=== PATIENT | male | born 1960 | race Caucasian/White ===

== ENCOUNTER 2019-10-29 15:50 | Inpatient (IN) | payer MEDICARE ==
[~2019-10-29] VITALS: Ht 185.4 cm; Wt 94.8 kg
[2019-10-29 16:06] LABS: ABSOLUTE EOSINOPHILS 0.1 thou/uL (0.0-0.7); ABSOLUTE LYMPHOCYTES 1.2 thou/uL (0.8-5.3); ABSOLUTE MONOCYTES 0.3 thou/uL (0.0-1.2); ABSOLUTE NEUTROPHILS 5.3 thou/uL (1.6-8.1); BASOPHILS 0.5 %; HEMATOCRIT 47.1 % (42.0-52.0); HEMOGLOBIN 16.5 gm/dL (14.0-18.0); LYMPHOCYTES 17.1 %; MCH 39.4 pg (26.0-34.0); MCHC 35.1 g/dL (28.0-37.0); MCV 112.2 fL (80.0-100.0); MPV 8.2 fl. (7.2-11.1); NUCLEATED RBCS 0 /100WBC; PLATELET COUNT* 225 thou/uL (150-400); POLYS 77.4 %; RDW-CV 15.4 % (10.5-14.5); WBC 6.8 thou/uL (4.0-11.0)
[2019-10-29 16:09] VITALS: BP 158/103
[2019-10-29 16:15] LABS: CALCIUM 8.2 mg/dL (8.5-10.1); CREATININE 0.9 mg/dL (0.6-1.3); POTASSIUM 3.3 mmol/L (3.5-5.1)
[2019-10-29 16:16] LABS: APTT 26.8 Seconds (25.0-31.3); PROTIME 10.5 Seconds (9.20-11.50)
[2019-10-29] MEDS ORDERED: ASA81BEC PO (16:16)
[2019-10-29 16:19] LABS: ALBUMIN 3.4 g/dL (3.4-5.0); TOTAL BILIRUBIN 0.5 mg/dL (<0.1-1.0); TOTAL PROTEIN 6.4 g/dL (6.4-8.2)
--- NOTE | 2019-10-29 16:53 | NUR ---
CODE STROKE CANCELLED, DX CHANGED TO NSTEMI; PT CURRENTLY WITH CP 12/25; WILL CONTINUE TO MONITOR
[2019-10-29 16:57] LABS: ANISOCYTOSIS 2+; POIKILOCYTOSIS 1+; POLYCHROMASIA Occasional
[2019-10-29 21:28] VITALS: BP 125/77
[2019-10-29 22:00] VITALS: BP 123/79
[2019-10-30] VITALS (14 sets, daily range): BP systolic 102–133; BP diastolic 64–88
[2019-10-30 01:04] LABS: HEMATOCRIT 42.1 % (42.0-52.0); HEMOGLOBIN 14.9 gm/dL (14.0-18.0); MCH 39.4 pg (26.0-34.0); MCHC 35.3 g/dL (28.0-37.0); MCV 111.8 fL (80.0-100.0); MPV 8.5 fl. (7.2-11.1); RBC 3.77 mil/uL (4.50-6.00); RDW-CV 15.6 % (10.5-14.5); WBC 7.6 thou/uL (4.0-11.0)
--- NOTE | 2019-10-30 05:08 | NUR ---
PT ADMITTED TO FLOOR AT 2140 WITH FAMILY AT BEDSIDE. ASSESSMENTS COMPLETED AT BEDSIDE, ACCOUNT LIAISON HOSPICE IN PLACE AND MEDICATIONS ADMINISTERED PER MAR. PT HAS NO C/O PAIN OR DISCOMFORT AND REQUESTED A BOX LUNCH PROIR TO NPO STATUS AT 0000. CURRENTLY ASLEEP IN BED WITH BED ALARM ON AND CALL LIGHT WITHIN REACH.
[2019-10-30 11:56] LABS: INR 1.1; PROTIME 11.1 Seconds (9.20-11.50)
[2019-10-30 12:02] LABS: ANION GAP 7 mmol/L (7-16); BUN 13 mg/dL (7-18); CALCIUM 7.8 mg/dL (8.5-10.1); CHLORIDE 107 mmol/L (98-107); CHOLESTEROL 170 mg/dL (<200); CO2 27 mmol/L (21-32); CREATININE 0.8 mg/dL (0.6-1.3); GLUCOSE 103 mg/dL (70-99); HDL CHOLESTEROL 38 mg/dL (>40); LDL CHOLESTEROL 106 mg/dL (<100); POTASSIUM 3.8 mmol/L (3.5-5.1); SODIUM 141 mmol/L (136-145); TC:HDL 4.5 Ratio (Not establshd); TRIGLYCERIDE 133 mg/dL (<150); VLDL 27 mg/dL (<40)
[2019-10-30 12:04] LABS: SERUM ASSESSMENT Clear
--- NOTE | 2019-10-30 13:18 | CARD ---
[facility] [address] [place] [address] CARDIAC CATH REPORT Name: SANTOS BASSETT Room: [address] IN .R.#: [id number] Admission: 10/29/19 Attend Phys: Elver Kim, Discharge: Date of : 58 Report #: [id number] THIS REPORT FOR: //name// cc: Rehan Kern Bradley L. DO ~ THIS REPORT FOR: //name// APPROVED REPORT Study performed: 10/30/2019 11:18:[address] Checo Vega Procedures Performed Left heart catheterization left ventriculography selective coronary artery and percutaneous coronary intervention to the right coronary artery just beyond the acute margin Indication Non-STEMI Risk Factors Hypercholesterolemia, Hypertension Admission/Lab Medications/Medications given during procedure Angiomax bolus and infusion Procedure Narrative The patient was brought electively to the Cardiac Catheterization Laboratory and was prepped and draped in a sterile manner. The right femoral was infiltrated with 2% Lidocaine subcutaneous anesthesia. A 6 Pashto sheath was inserted into the right femoral artery. Coronary angiography was performed using coronary diagnostic catheters. The right coronary system was accessed and visualized with a Diagnostic catheter. The left coronary system was accessed and visualized with a Diagnostic catheter. The left ventricle was accessed and visualized with a Diagnostic catheter. Left ventricular/Aortic Valve gradient assessed via catheter pullback. Left ventriculogram was performed in [place] projection. Pre-demployment femoral angiogram was performed . Closure device was deployed with a 6 Fr Angioseal. There was no hematoma. Coronary Angiography The patient's coronary anatomy is right dominant. [facility] [address] [place] [address] CARDIAC CATH REPORT Name: SANTOS BASSETT Room: [address] IN [facility]#: [id number] Admission: 10/29/19 Attend Phys: Elver Kim, Discharge: Date of : 58 Report #: [id number] Diagnostic Cath Left Main 0% narrowing LAD 60-70% mid vessel stenosis Circumflex 0% narrowing of the small nondominant vessel Right Coronary Large dominant vessel with 90% occlusion just beyond the acute margin with local intraluminal thrombus Left Ventriculography The left ventricle is normal in size with contractility. The left ventricular ejection fraction is estimated to be 50-55%. Left ventricular wall motion abnormalities are present. There is no mitral insufficiency. There is hypokinesis of the basilar two thirds of the inferior wall Hemodynamics The left ventricular pressure is 130/70 mmHg with a mean of 82 mmHg. The left ventricular end diastolic pressure is 16 mmHg. There was no gradient across the aortic valve upon pullback. PCI Technique Lesion Anticoagulation was achieved with Angiomax. Percutaneous coronary intervention was performed on the distal right coronary artery. The lesion stenosis prior to intervention was 90% with BRENDAN 3 flow. BALLOON DILATION A Balloon catheter 2.5 x 12 mm trek was inserted and inflated up to 14atm for 15seconds. STENT DEPLOYMENT A drug-eluting stent 3.25 x 15 mm xience was inserted and inflated up to 15atm for 10seconds. Final angiography reveals 10 % stenosis with BRENDAN 3 flow. Conclusion #1 coronary artery disease characterized by the following: A 60-70% mid LAD stenosis B 90% stenosis of the large dominant right coronary artery just beyond the acute margin with local intraluminal thrombus #2 mild impairment in global LV function, [place] [address] CARDIAC CATH REPORT Name: SANTOS BASSETT Room: [address] IN [facility].#: [id number] Admission: 10/29/19 Attend Phys: Elver Kim, Discharge: Date of : 58 Report #: [id number] of 50-55% with hypokinesis of the basilar two thirds of the inferior wall #3 mild elevation of left ventricular end-diastolic pressure at rest #4 successful percutaneous coronary intervention with deployment of drug-eluting stent at site of 90% right coronary stenosis just beyond the acute margin with 10% residual narrowing BRENDAN-3 flow to the distal vessel and no residual thrombus Recommendations Cardiac Risk Reduction Program Aggressive Medical Therapy Medications Administered Aspirin (any) Prasugrel Diagnostic Cath Approved by: Daniel Kessler MD Date/Time: 10/30/2019 13:17:06 <ELECTRONICALLY SIGNED> By: Sergio Vega MD, [facility] 10/30/19 1317 16 Sergio Vega MD, [facility] /INF
--- NOTE | 2019-10-30 19:09 | NUR ---
PT VSS THIS SHIFT. PT WENT DOWN AND HAD A CATH THIS SHIFT, WITH RT GROIN SITE. SITE IS CDI WITH NO S/SX OF BLEEDING. PT OFF PXNS AT THIS TIME WITH NO NOTED CONCERNS. PT HAS IV FLUIDS RUNNING WHICH HE IS TOLERATING, PT IS TOLERATING DIET, O2 PER NC @ 2L, AND HAS RASH TO UPPER LEFT SIDE OF ABD/CHEST THAT WAS NOTED DURING THE CATH PROCEDURE, PT HAS NO C/O PAIN OR ITCHING AT THIS TIME AND MEDICATIONS WERE PROVIDED DURING CATH PROCEDURE. WILL CONTINUE TO MONITOR AND ASSESS
[2019-10-30 19:38] LABS: AMP/METHAMP Negative (Negative); BARBITURATES Negative (Negative); BENZODIAZEPINES POSITIVE (Negative); COCAINE Negative (Negative); METHADONE Negative (Negative); OPIATES Negative (Negative); PCP Negative (Negative); THC Negative (Negative)
[2019-10-31] VITALS (7 sets, daily range): BP systolic 99–112; BP diastolic 55–79
--- NOTE | 2019-10-31 02:57 | NUR ---
PT ALERT ORIENTED. UP TO BR. FINISHED VITAMIN BAG AT 0250. DENIES PAIN. O2 DC PER PT. RA O2 SAT 90% WCTM
--- NOTE | 2019-10-31 12:27 | NUR ---
ASSUMED PT CARE REPORT RECEIVED FROM NURSE PT IS AOX4 ON RA. O2 SATURATION IS 94%, IV PATENT. R GROIN SITE CLEAN, DRY, AND INTACT. IV MULTIVITAMINS BAG IS NOT AVAILABLE AT TIME OF MEDICATION ADMINISTRATION. PHARMACY NOTIFIED. WILL CHECK FOR AVAILABILITY AGAIN. PT IS ANXIOUS TO GO HOME. AWAITNG FOR HOSPITALIST ARRIVAL. PT AMBULATES INDEPENDENTLY IN HALLWAY. NO FURTHER COMPLAINT. CALL LIGHT AT REACH. WILL CONTINUE TO MONITOR .
--- NOTE | 2019-10-31 12:48 | CON ---
[address] [address] CONSULTATION Name: SANTOS BASSETT Room: [address] IN .R.#: [id number] Admission: 10/29/19 Attend Phys: Elver Kim, Discharge: Date of : 58 Report #: [id number] THIS REPORT FOR: //name// cc: Rehan Kern Bradley L. DO THIS REPORT FOR: //name// CC: Rehan Bojorquez CARDIOLOGY CONSULTATION INDICATION: Non-ST elevation myocardial infarction. HISTORY OF PRESENT ILLNESS: The patient is a very pleasant 59-year-old gentleman who was admitted to the hospital yesterday with persistent left of sternum chest pressure and tightness radiating to the left arm. He had associated diaphoresis and nausea. The patient's cardiac enzymes were slightly elevated. EKG showed ST segment depression suggesting ischemia. The patient was given nitroglycerin, aspirin and heparin and his symptoms abated. The patient is presently pain free. He reports having some mild heart attacks approximately 20-25 years ago. At that time, angiography was performed, but no intervention undertaken. He has been having progressive symptoms for the past week. He is without other cardiac complaint. Cardiac risk factors include tobacco use and family history of coronary artery disease. Lipid status is unknown. He was hypertensive on admission, but denies a history of chronic hypertension. He is without other cardiac complaint at this time. PAST MEDICAL HISTORY: 1. Heart disease as outlined above. 2. 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 3. Chronic tobacco use. 4. Skin cancer removed from the arm 5 years ago. FAMILY HISTORY: The patient's father had myocardial infarction. SOCIAL HISTORY: The patient smokes a pack of cigarettes daily and has done so for approximately 40 years. Drinks alcohol occasionally. He is . CURRENT MEDICATIONS: Aspirin 81 mg daily, ibuprofen p.r.n. ALLERGIES: None. REVIEW OF SYSTEMS: A 14-point review of systems is positive for a nonproductive cough, chest discomfort as outlined above, orthopnea, skin cancer removed [address] [place] [address] CONSULTATION Name: SANTOS BASSETT Room: [address] IN [facility]#: [id number] Admission: 10/29/19 Attend Phys: Elver Kim, Discharge: Date of : 58 Report #: [id number] years ago, lower back arthritis and upper dentures. Otherwise, 14-point review of systems was unremarkable. PHYSICAL EXAMINATION: VITAL SIGNS: Stable. Blood pressure 127/79, pulse is 70 and regular. GENERAL: This is a pleasant gentleman in no distress. Mood and affect appropriate. HEENT: Extraocular muscles intact. Mucous membranes moist. NECK: Shows no jugular venous distention. There is a right carotid bruit. CARDIAC: Reveals a regular rhythm without gallop or murmur. CHEST: Reveals diminished breath sounds, prolonged expiration. I do not appreciate wheezes or rales. ABDOMEN: Reveals normal bowel sounds. The abdomen is soft, nontender. EXTREMITIES: Shows no edema. Peripheral pulses palpable. SKIN: Warm and dry. LABORATORY DATA: A 12-lead EKG shows sinus rhythm with diffuse T-wave inversion. Labs are reviewed. Sodium 130, potassium 3.3, chloride 105, bicarbonate 26, BUN 10, creatinine 0.9, serum glucose 155. LFTs within normal limits. Troponin peaked 9.79. White blood cell count 7.6, hemoglobin 14.9, platelet count 180,000. Chest x-ray shows no acute cardiopulmonary abnormality. IMPRESSION AND RECOMMENDATIONS: 1. Non-ST elevation myocardial infarction. We will proceed with coronary angiography and possible intervention today. Continue aspirin and heparin at this time. We will make adjustments to medications post-intervention. 2. Probable dyslipidemia. We will check fasting lipid profile. 3. Tobacco use, cessation advised. 4. Borderline hypertension. We will adjust medications as needed to control blood pressure adequately. 5. Carotid bruit. Would recommend outpatient carotid Dopplers for followup. <ELECTRONICALLY SIGNED> By: Daniel Kessler MD, FACC 10/31/19 1248 1038 1207Micgregory Kessler MD, FACC /nt
[2019-10-31] MEDS ORDERED: LIPITOR 40 MG T40 M1 PO (14:50)
[2019-10-31] MEDS ORDERED: CLOPIDOGREL75 MG PO (14:50)
[2019-10-31] MEDS ORDERED: ASPIR 8181 MG PO (14:50)
[2019-10-31] MEDS ORDERED: NITROGLYCERIN0.4 MG SUBLING (14:50)
[2019-10-31] MEDS ORDERED: VITAMIN B-1100 M2 PO (15:15)
[2019-10-31] MEDS ORDERED: FOLIC ACID1 MG PO (15:17)
[2019-10-31] MEDS ORDERED: SUPER THERAVIT1 EACH PO (15:18)
[2019-10-31] MEDS ORDERED: FAMOTIDINE 20 M20 MG PO (15:21)
[2019-10-31] MEDS ORDERED: ENBRACE HR SOF1 EACH PO (15:24)
--- NOTE | 2019-10-31 16:16 | NUR ---
DISCHARGE ORDERED. IV LINE REMOVED. HEART MONITOR RETRIEVED. PT WHEELED OUT OF HOSPITAL AT 1605 ACCOMPANIED BY THIS NURSE AND FAMILY MEMBERS. DC INSTRUCTION GIVEN TO PT UPON DISCHARGE.
--- NOTE | 2019-10-31 16:19 | NUR ---
FOLLOW UP CARDIOLOGY APPNT REQUEST FAXED TO CARDIOLOGY. THIS DAY IS A FRIDAY AND THIS NURSE WAS NOT ABLE TO REACH TO CARDIO TO SET UP FOLLOW UP APPNT BY PHONE. FAX USED. PT NOTIFIED. PT INSTRUCTED TO CALL THEM WITHIN A WEEK IF HE HAD NOT HEARD FROM THEM.
--- NOTE | 2019-11-01 09:06 | EKG ---
[place] [address] ELECTROCARDIOGRAM REPORT Name: SANTOS BASSETT Room: [address] IN [facility]#: [id number] Admission: 10/29/19 Attend Phys: Elver Genao Discharge: 10/31/19 Date of : 58 Date of Service: 10/29/19 1614 Report #: [id number] THIS REPORT FOR: //name// [facility] ED Test Date: 2019-10-29 Test Time: 16:14:13 Pat Name: SANTOS BASSETT Department: Room: [facility] Gender: M Brusher Machine: : 1960 Requested By: Hilario Callahan Order Number: [id number] MD: Ivan Paniagua Measurements Intervals [place] Rate: 82 P: 58 FL: 159 QRS: 129 QRSD: 116 T: -23 QT: 382 QTc: 446 Interpretive Statements Sinus rhythm Left posterior fascicular block Inferior infarct, age indeterminate No previous ECG available for comparison Electronically Signed On 11-01-2019 9:04:55 CDT by Ivan Paniagua [email or web address] <ELECTRONICALLY SIGNED> By: Ivan Paniagua MD, FAC 11/01/19 0904 1614 1614 Ivan Paniagua MD, [facility] /EPI
--- NOTE | 2019-11-01 09:08 | EKG ---
[place] [address] ELECTROCARDIOGRAM REPORT Name: SANTOS BASSETT Room: [address] IN M.R.#: [id number] Admission: 10/29/19 Attend Phys: Elver Genao Discharge: 10/31/19 Date of : 58 Date of Service: 10/29/19 1702 Report #: [id number] THIS REPORT FOR: //name// [facility] ED Test Date: 2019-10-29 Test Time: 17:02:08 Pat Name: SANTOS BASSETT Department: Room: [facility] Gender: M Home Care Specialist: : 1960 Requested By: Hilario Callahan Order Number: [id number] MD: Ivan Paniagua Measurements Intervals [place] Rate: 77 P: 58 [place]: 161 QRS: 116 QRSD: 112 T: -54 QT: 406 QTc: 460 Interpretive Statements Sinus rhythm Left posterior fascicular block Abnormal R-wave progression, late transition Inferior infarct, age indeterminate Electronically Signed On 11-01-2019 9:06:59 CDT by Ivan Paniagua [email or web address] <ELECTRONICALLY SIGNED> By: Ivan Paniagua MD, FAC 11/01/19 0906 170 01 Ivan Paniagua MD, [facility] /EPI
--- NOTE | 2019-11-01 11:49 | EKG ---
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: HELLEN : 1960 Requested By: Daniel Kessler Order Number: [id number] Reading MD: Ivan Paniagua Measurements Intervals [place] Rate: 82 P: 66 PA: 177 QRS: 127 QRSD: 94 T: -27 QT: 377 QTc: 441 Interpretive Statements Sinus rhythm nonspecific st changes Left posterior fascicular block Borderline low voltage, extremity leads Abnormal R-wave progression, late transition Compared to ECG 10/29/2019 17:02:08 no change Electronically Signed On 11-01-2019 11:47:45 CDT by Ivan Paniagua [email or web address] <ELECTRONICALLY SIGNED> By: Ivan Paniagua MD, FAC 11/01/19 1147 0744 0744 Ivan Paniagua MD, FAC /EPI
--- NOTE | 2019-11-03 16:16 | NUR ---
Cardiac Rehab. All education materials of [place]/STENT and Stent card mailed to patient at home address.
== END 2019-10-31 16:16 | disposition home or self-care (01) | DRG 246 ==
LOC: M.ERS 15:50 → M.2W 17:11 → M.TBA-ER 17:11 → M.2W 21:44
PROVIDERS: Family Medicine; Internal Medicine Cardiovascular Disease; ADMIT Family Medicine
PROC: 027034Z Dilation of Coronary Artery, One Artery with Drug-eluting Intraluminal Device, Percutaneous Approach (ICD-10-PCS; principal; 2019-10-30)
PROC: B2151ZZ Fluoroscopy of Left Heart using Low Osmolar Contrast (ICD-10-PCS; principal; 2019-10-30)
PROC: B2111ZZ Fluoroscopy of Multiple Coronary Arteries using Low Osmolar Contrast (ICD-10-PCS; principal; 2019-10-30)
PROC: 4A023N7 Measurement of Cardiac Sampling and Pressure, Left Heart, Percutaneous Approach (ICD-10-PCS; principal; 2019-10-30)
DX: I21.4 Non-ST elevation (NSTEMI) myocardial infarction (principal); I50.33 Acute on chronic diastolic (congestive) heart failure; I69.354 Hemiplegia and hemiparesis following cerebral infarction affecting left non-dominant side; I11.0 Hypertensive heart disease with heart failure; F17.210 Nicotine dependence, cigarettes, uncomplicated; E78.5 Hyperlipidemia, unspecified; I25.10 Atherosclerotic heart disease of native coronary artery without angina pectoris; Z79.82 Long term (current) use of aspirin; Z72.89 Other problems related to lifestyle; Z85.828 Personal history of other malignant neoplasm of skin; Z79.899 Other long term (current) drug therapy; Z82.49 Family history of ischemic heart disease and other diseases of the circulatory system

== ENCOUNTER 2019-12-31 07:38 | Observation (INO) | payer MEDICARE ==
[2019-12-31] VITALS (15 sets, daily range): BP systolic 110–139; BP diastolic 59–81
[~2019-12-31] VITALS: Ht 185.4 cm; Wt 88.5 kg
[~2019-12-31 07:38] MED LIST: ASA81BEC PO; ASPIR 8181 MG PO; BRILINTA90 MG PO; CLOPIDOGREL75 MG PO; ENBRACE HR SOF1 EACH PO; FAMOTIDINE 20 M20 MG PO; FOLIC ACID1 MG PO; LIPITOR 40 MG T40 M1 PO; NITROGLYCERIN0.4 MG SUBLING; SUPER THERAVIT1 EACH PO; VITAMIN B-1100 M2 PO
[2019-12-31 08:43] LABS: HEMATOCRIT 46.3 % (42.0-52.0); HEMOGLOBIN 16.1 gm/dL (14.0-18.0); MCH 34.9 pg (26.0-34.0); MCHC 34.8 g/dL (28.0-37.0); MCV 100.1 fL (80.0-100.0); MPV 8.8 fl. (7.2-11.1); RBC 4.62 mil/uL (4.50-6.00); WBC 6.6 thou/uL (4.0-11.0)
[2019-12-31 08:45] LABS: ANION GAP 8 mmol/L (7-16); BUN 15 mg/dL (7-18); CALCIUM 8.7 mg/dL (8.5-10.1); CHLORIDE 106 mmol/L (98-107); CO2 26 mmol/L (21-32); CREATININE 1.1 mg/dL (0.6-1.3); GLUCOSE 125 mg/dL (70-99); POTASSIUM 3.9 mmol/L (3.5-5.1); SODIUM 140 mmol/L (136-145)
[2019-12-31 08:46] LABS: APTT 27.8 Seconds (25.0-31.3); PROTIME 10.1 Seconds (9.20-11.50)
[2019-12-31 08:49] LABS: ALBUMIN 3.6 g/dL (3.4-5.0); ALKALINE PHOSPHATASE 77 U/L (46-116); CHOLESTEROL 130 mg/dL (<200); HDL CHOLESTEROL 39 mg/dL (>40); LDL CHOLESTEROL 70 mg/dL (<100); SGOT 15 U/L (15-37); SGPT 21 U/L (30-65); TC:HDL 3.3 Ratio (Not establshd); TOTAL BILIRUBIN 0.4 mg/dL (<0.1-1.0); TRIGLYCERIDE 108 mg/dL (<150); VLDL 22 mg/dL (<40)
[2019-12-31 08:53] LABS: SERUM ASSESSMENT Clear
--- NOTE | 2019-12-31 15:15 | EKG ---
[place] [address] ELECTROCARDIOGRAM REPORT Name: SANTOS BASSETT Room: [address] M.R.#: [id number] Admission: 12/31/19 Attend Phys: Adriel Alvarez Discharge: Date of : 58 Date of Service: 12/31/19 0853 Report #: [id number] THIS REPORT FOR: //name// [facility] Test Date: 2019-12-31 Test Time: 08:53:10 Pat Name: SANTOS BASSETT Department: Room: [facility] Gender: M Floor Sander: : 1960 Requested By: Sergio Vega Order Number: [id number] Reading MD: Sergio Vega Measurements Intervals [place] Rate: 65 P: 55 NE: 183 QRS: -18 QRSD: 88 T: 0 QT: 391 QTc: 407 Interpretive Statements Sinus rhythm Borderline left axis deviation Low voltage, extremity leads Abnormal R-wave progression, late transition Compared to ECG 10/31/2019 07:44:30 ST (T wave) deviation no longer present Left posterior fascicular block no longer present Electronically Signed On 12-31-2019 15:13:48 CDT by Sergio Vega [email or web address] <ELECTRONICALLY SIGNED> By: Sergio Vega MD, [facility] 12/31/19 1513 0853 0853 Sergio Vega MD, [facility] /EPI
--- NOTE | 2019-12-31 15:17 | EKG ---
[place] [address] ELECTROCARDIOGRAM REPORT Name: SANTOS BASSETT Room: [address] M.R.#: [id number] Admission: 12/31/19 Attend Phys: Adriel Alvarez Discharge: Date of : 58 Date of Service: 12/31/19 1059 Report #: [id number] THIS REPORT FOR: //name// [facility] Test Date: 2019-12-31 Test Time: 10:59:49 Pat Name: SANTOS BASSETT Department: Room: [facility] Gender: M Slot Key Person: : 1960 Requested By: Sergio Vega Order Number: [id number] Sonja MD: Sergio Vega Measurements Intervals [place] Rate: 59 P: 60 ID: 181 QRS: -63 QRSD: 90 T: -12 QT: 417 QTc: 414 Interpretive Statements Sinus rhythm Inferior infarct, age indeterminate suggested Compared to ECG 10/31/2019 07:44:30 Myocardial infarct finding suggested ST (T wave) deviation no longer present Electronically Signed On 12-31-2019 15:15:46 CDT by Sergio Vega [email or web address] <ELECTRONICALLY SIGNED> By: Sergio Vega MD, [facility] 12/31/19 1515 1059 1059 Sergio Vega MD, [facility] /EPI
--- NOTE | 2019-12-31 15:42 | CARD ---
[address] [address] CARDIAC CATH REPORT Name: SANTOS BASSETT Room: [address] Rudy Fernandez#: [id number] Admission: 12/31/19 Attend Phys: Sergio Vega MD, Discharge: Date of : 58 Report #: [id number] THIS REPORT FOR: //name// cc: Rehan Kern DO Rehan Kern DO ~ APPROVED REPORT Study performed: 12/31/2019 08:46:43 Patient Details Patient Status: Out-Patient Room #: The patient is a 59 year-old male Event Personnel Sergio Vega Kiln Hand, Fany Atkins RN RN, Panchito Bo RTR ScrubEthan Jessie RTR Monitor Procedures Performed Art Access - R femoral artery Left Heart Cath w/or w/o Coronaries JESS Place w/wo Plasty Single LAD Hemostasis w/ Mynx Indication Unstable angina Risk Factors Hypercholesterolemia, Hypertension Previous Procedures/Diagnoses Previous MA Admission/Lab Medications/Medications given during procedure Angiomax bolus and infusion Procedure Narrative The patient was brought electively to the Cardiac Catheterization Laboratory and was prepped and draped in a sterile manner. The right femoral was infiltrated with 2% Lidocaine subcutaneous anesthesia. A Zarephath 6 FR sheath was inserted into the right femoral artery. Coronary angiography was performed using coronary diagnostic catheters. The right coronary system was accessed and visualized with a Diagnostic 6 Fr JR 4 catheter. The left coronary system was accessed and visualized with a Diagnostic 6 Fr JL 4 catheter. The left ventricle was accessed and visualized with a Diagnostic 6 Fr Pigtail catheter. Left ventricular/Aortic Valve gradient assessed via catheter pullback. Left ventric[place] [address] CARDIAC CATH REPORT Name: SANTOS BASSETT Room: [address]#: [id number] Admission: 12/31/19 Attend Phys: Sergio Vega MD, Discharge: Date of : 58 Report #: [id number] projection. Pre-demployment femoral angiogram was performed . Closure device was deployed with a Fr MynxGrip 6/7F. The patient tolerated the procedure well and there were no complications associated with the procedure. There was no hematoma. Intraoperative Conscious Sedation Sedation start time: 09:44 Case end Time: 10:30 Fentanyl 50 mcg Versed 3 mg Fluoro Time: 10.0 minutes Dose: DAP 84240 cGycm2 1031 mGy Contrast Type and Amount: Visipaque 240 ml Diagnostic Cath Left Main 0% narrowing LAD 30% proximal narrowing with 80% tubular mid LAD stenosis Circumflex Nondominant vessel with 30% proximal narrowing Right Coronary Large dominant vessel with 30% proximal and mid vessel narrowing Left Ventriculography The left ventricle is normal in size with normal contractility. The left ventricular ejection fraction is estimated to be 50%. Left ventricular wall motion abnormalities are present. There is no mitral insufficiency. Mid inferior hypokinesis is noted Hemodynamics The aortic pressure is 109/62 mmHg with a mean of 81 mmHg. The left ventricular pressure is 115/2 mmHg with a mean of mmHg. The left ventricular end diastolic pressure is 16 mmHg. PCI Technique Lesion Anticoagulation was achieved with Angiomax Drip. Patient was preloaded with Angiomax IV 30.5 ml. Percutaneous coronary intervention was performed on the mid left anterior descending artery segment. The lesion stenosis prior to intervention was 80% with BRENDAN 3 flow. A 6F XB LAD 3.5 Guide Catheter was used to engage the left ostium. A IG: ProwaterFlex 180CM Interventional Guidewire was used to cross the lesion. BALLOON DILATION A Balloon catheter Trek RX 2.25 X 12 was inserted and inflated up to 8.00atm for 6seconds. Additional Inflation: 12.00atm for 9seconds. Additional Inflation: 16.00atm [place] 11[place]. [place] [address] CARDIAC CATH REPORT Name: SANTOS BASSETT Room: [address] Rudy Fernandez#: [id number] Admission: 12/31/19 Attend Phys: Sergio Vega MD, Discharge: Date of : 58 Report #: [id number] STENT DEPLOYMENT A drug-eluting stent Waterman RX Stent 2.5X15mm was inserted and inflated up to 10.00atm for 12seconds. Additional Inflation: 10.00atm for 7seconds. Final angiography reveals 0 % stenosis with BRENDAN 3 flow. Conclusion 1. Significant coronary artery disease characterized by the following: A 30% proximal and 80% tubular mid LAD stenosis B 30% narrowing of the proximal portion of the small nondominant circumflex C 30% proximal and mid right coronary narrowing, this being a large dominant vessel 2. Low normal global LV function, estimated ejection fraction being 50% with mid inferior hypokinesis 3. Mild elevation of left ventricular end-diastolic pressure at rest 4. Successful PCI with deployment of drug-eluting stent at the site of 80% mid LAD stenosis with 0% residual narrowing and BRENDAN-3 flow to the distal vessel Recommendations Cardiac Risk Reduction Program Aggressive Medical Therapy Medications Administered Ticagrelor Diagnostic Cath Approved by: Sergio Vega MD Date/Time: 12/31/2019 15:38:55 <ELECTRONICALLY SIGNED> By: Sergio Vega MD, [facility] 12/31/19 1540 1540 1540Sergio Vega MD, [facility] /INF
[2020-01-01 00:40] VITALS: BP 123/72
[2020-01-01 05:10] VITALS: BP 124/72
[2020-01-01 05:24] LABS: HEMATOCRIT 42.3 % (42.0-52.0); HEMOGLOBIN 14.7 gm/dL (14.0-18.0); MCH 34.5 pg (26.0-34.0); MCHC 34.7 g/dL (28.0-37.0); MCV 99.5 fL (80.0-100.0); MPV 8.7 fl. (7.2-11.1); RBC 4.26 mil/uL (4.50-6.00); RDW-CV 15.5 % (10.5-14.5); WBC 5.9 thou/uL (4.0-11.0)
[2020-01-01 05:54] LABS: CALCIUM 8.2 mg/dL (8.5-10.1); CREATININE 0.8 mg/dL (0.6-1.3); POTASSIUM 4.2 mmol/L (3.5-5.1); TOTAL BILIRUBIN 0.5 mg/dL (<0.1-1.0); TOTAL PROTEIN 5.8 g/dL (6.4-8.2); TROPONIN-I LEVEL 0.12 ng/mL (<0.06)
--- NOTE | 2020-01-01 06:42 | NUR ---
ASSUMED PT CARE AT 1920. NURSING ASSESSMENT COMPLETED AT START OF SHIFT. INVOICE CODER IN PLACE, TRACING SINUS RHYTHM. PT VOICED NO CONCERNS THIS SHIFT. DENIES PAIN. CALL LIGHT WITHIN REACH.
[2020-01-01 07:40] VITALS: BP 124/73
[2020-01-01 09:07] VITALS: BP 110/69
--- NOTE | 2020-01-01 10:42 | NUR ---
PATIENT GIVEN D/C INSTRUCTIONS. ALL QUESTIONS ANSWERED. AGUSTIN SAMPLES SENT HOME WITH PATIENT. ALL BELONGINGS PACKED UP AND READY TO GO.
--- NOTE | 2020-01-01 11:20 | D ---
[address] [address] DISCHARGE SUMMARY Name: SANTOS BASSETT Room: [address] Rudy Fernandez#: [id number] Admission: 12/31/19 Attend Phys: Sergio Vega MD, Discharge: 01/01/20 Date of : 58 Report #: [id number] THIS REPORT FOR: //name// cc: Rehan Kern Bradley L. DO ~ THIS REPORT FOR: //name// CC: Rehan Vega FINAL DISCHARGE DIAGNOSES: 1. Unstable angina. 2. Coronary artery disease. 3. Status post recent myocardial infarction. 4. Hyperlipidemia. 5. Tobacco abuse. PROCEDURES: On 12/31/2019 - left heart catheterization, left ventriculography, selective coronary arteriography, percutaneous coronary intervention with deployment of drug-eluting stent in the mid LAD. The patient is a very pleasant 59-year-old male with a history of acute coronary syndrome approximately 3 to 4 weeks ago interrupted by stenting of the mid right coronary artery. He was also noted to have a significant LAD lesion, which was not approached in the acute setting. Since then, he has experienced some chest discomfort, but nothing as severe as that associated with his prior infarct. In this context, he underwent recatheterization on 12/31/2019, which revealed a widely patent right coronary stent at the acute margin and 80% mid LAD stenosis. I deployed one Jerman drug-eluting stent in the mid LAD with 0% residual narrowing and BRENDAN 3 flow of the distal vessel. The patient did well post-procedurally. Troponin kindra inconsequentially to 0.12. Additional lab was sodium 138, potassium 4.2, BUN 12, creatinine 0.8, hemoglobin 14.7, white blood cell count 5900 with 203,000 platelets. The patient ambulated in the hallways without difficulty. He was discharged to home on 01/01/2020 on the following medications: Aspirin enteric coated 81 mg daily, atorvastatin 40 mg daily, ticagrelor or Brilinta 90 mg b.i.d. We also talked about the importance of cigarette smoking cessation. I will plan to see the patient in followup on 01/25/2020 at 1100 at [place] [address] DISCHARGE SUMMARY Name: SANTOS BASSETT [address]: [address]#: [id number] Admission: 12/31/19 Attend Phys: Sergio Vega MD, Discharge: 01/01/20 Date of : 58 Report #: [id number] Therefore, the patient is discharged to home in stable condition on the aforementioned medications with followup as described above. <ELECTRONICALLY SIGNED> By: Sergio Vega MD, [facility] 01/01/20 1120 1040 [id number] Martina Vega MD, FACC /nt
--- NOTE | 2020-01-03 17:01 | EKG ---
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1960 Requested By: Sergio Vega Order Number: [id number] Reading MD: Daniel Kessler Measurements Intervals [place] Rate: 67 P: 52 PA: 184 QRS: 98 QRSD: 89 T: -13 QT: 394 QTc: 416 Interpretive Statements Sinus rhythm Right axis deviation Low voltage, extremity leads Compared to ECG 12/31/2019 10:59:49 Right-axis deviation now present Low QRS voltage now present Myocardial infarct finding no longer present Electronically Signed On 01-03-2020 16:59:29 CDT by Daniel Kessler [email or web address] <ELECTRONICALLY SIGNED> By: Daniel Kessler MD, FACC 01/03/20 1659 5 5 Daniel Kessler MD, FACC /EPI
== END 2020-01-01 11:05 | disposition home or self-care (01) ==
LOC: M.CL 07:38 → M.TBA-CV 10:54 → M.2W 12:17
PROVIDERS: ADMIT Internal Medicine
DX: I25.110 Atherosclerotic heart disease of native coronary artery with unstable angina pectoris (principal); I25.2 Old myocardial infarction; E78.5 Hyperlipidemia, unspecified; F17.200 Nicotine dependence, unspecified, uncomplicated

== ENCOUNTER 2020-06-16 09:05 | Observation (INO) | payer MEDICARE ==
[2020-06-16] VITALS (13 sets, daily range): BP systolic 109–135; BP diastolic 69–87
[~2020-06-16] VITALS: Ht 185.4 cm; Wt 90.7 kg
--- NOTE | ~2020-06-16 | H ---
[address] [address] HISTORY AND PHYSICAL Name: SANTOS BASSETT Room: [address] Rudy Fernandez#: [id number] Admission: 06/16/20 Attend Phys: Sergio Vega MD, Discharge: 06/17/20 Date of : 58 Report #: [id number] THIS REPORT FOR: //name// cc: Rehan Kern Bradley L. DO ~ Please refer to the History and Physical performed in the physician's office. By: [id number] Records Staff [facility]
--- NOTE | ~2020-06-16 | D ---
[facility] [address] [place] [address] DISCHARGE SUMMARY Name: SANTOS BASSETT Room: [address] Rudy Fernandez#: [id number] Admission: 06/16/20 Attend Phys: Sergio Vega MD, Discharge: 06/17/20 Date of : 58 Report #: [id number] THIS REPORT FOR: //name// cc: Rehan Kern Bradley L. DO ~ CC: Rehan Vega DATE OF SERVICE: 06/17/2020 FINAL DISCHARGE DIAGNOSES: 1. Unstable angina. 2. Coronary artery disease. 3. Status post prior inferior wall myocardial infarction. 4. Hypercholesterolemia. 5. Tobacco abuse. 6. History of cerebrovascular accident. PROCEDURES: On 06/16/2020 -- left heart catheterization, left ventriculography, selective coronary arteriography, and percutaneous coronary intervention with deployment of drug-eluting stent at site of 90% proximal right coronary stenosis. HISTORY AND HOSPITAL COURSE: The patient is a very pleasant 60-year-old male with a history of hypercholesterolemia and tobacco use. He presented in October with acute inferior wall non-ST segment elevation infarction interrupted by stenting of the right coronary artery at the acute margin. He also had a high-grade mid LAD stenosis noted at that time. In December, I performed PCI in the LAD and right coronary stent was widely patent. In the last several weeks, predominantly 2-3 weeks ago, he has noted recrudescence of chest pain similar to his prior angina with a pattern of increasing frequency and severity with nitrate responsiveness. He had improved somewhat after the addition of long-acting mononitrate in the form of Imdur, but continued to experience spells. This was despite diminution and tobacco use, continue dual antiplatelet therapy as well as statin. He is requiring sublingual nitroglycerin tablets per week. In this context, I performed cardiac catheterization on 06/16/2020 which revealed 90% proximal right coronary stenosis with plaque ulceration suggested with a widely patent acute marginal stent. The previously deployed mid LAD stent was widely patent and there were no significant left main or circumflex stenosis. In this context, I deployed one 3.5 x 23 mm Xience drug-eluting stent [place] [address] DISCHARGE SUMMARY Name: SANTOS BASSETT [place] Room: [address] Rudy Fernandez#: [id number] Admission: 06/16/20 Attend Phys: Sergio Vgea MD, Discharge: 06/17/20 Date of : 58 Report #: [id number] right coronary artery, post-dilated to 3.75 mm with 0% residual narrowing and BRENDAN 3 flow to the distal vessel. He did well postprocedurally and there was good hemostasis at the right femoral site of catheterization. The dressing was changed. He ambulated in the hallways without difficulty. LABORATORY DATA: On 06/17/2020 revealed hemoglobin of ____, white blood cell count 5900 with 188,000 platelets. Potassium 3.7, BUN 17, and creatinine 1.0. Troponin less than 0.06. LDL 146, total cholesterol 240, HDL 52, and triglycerides 211 mg percent. The patient ambulated in the hallways without difficulty. DISCHARGE MEDICATIONS: Therefore, he was discharged to home on the following medications: Aspirin 81 mg daily, ticagrelor or Brilinta 90 mg b.i.d., atorvastatin 40 mg daily, and p.r.n. sublingual nitroglycerin. Long-acting mononitrate was discontinued. FOLLOWUP VISITS: He will have followup by nurse practitioner, Jenn Paul, on 07/07/2020 at 1100 hours and myself on 07/27/2020 at 1030 hours. Both appointments at the [place] [facility]. Therefore, the patient is discharged to home in stable condition on the aforementioned medications with followup as described above. By: 1048 1057Sergio Vega MD, FACC /nt
[2020-06-16] MEDS ORDERED: NITROSTAT0.4 M1 SUBLING (09:21)
[2020-06-16] MEDS ORDERED: IMDUR 30 MG TAB30 M1 PO (09:22)
[2020-06-16 09:57] LABS: HEMATOCRIT 50.5 % (42.0-52.0); HEMOGLOBIN 17.1 gm/dL (14.0-18.0); MCH 35.4 pg (26.0-34.0); MCHC 33.8 g/dL (28.0-37.0); MCV 104.9 fL (80.0-100.0); MPV 8.2 fl. (7.2-11.1); RBC 4.81 mil/uL (4.50-6.00); RDW-CV 16.5 % (10.5-14.5); WBC 9.1 thou/uL (4.0-11.0)
[2020-06-16 10:18] LABS: APTT 28.1 Seconds (25.0-31.3); INR 1.1; PROTIME 11.2 Seconds (9.20-11.50)
[2020-06-16 10:34] LABS: ANION GAP 10 mmol/L (7-16); BUN 17 mg/dL (7-18); CHLORIDE 104 mmol/L (98-107); CO2 26 mmol/L (21-32); GLUCOSE 109 mg/dL (70-99); POTASSIUM 5.1 mmol/L (3.5-5.1); SODIUM 140 mmol/L (136-145)
[2020-06-16 10:39] LABS: ALKALINE PHOSPHATASE 71 U/L (46-116); CHOLESTEROL 240 mg/dL (<200); HDL CHOLESTEROL 52 mg/dL (>40); LDL CHOLESTEROL 146 mg/dL (<100); SERUM ASSESSMENT Clear; SGOT 34 U/L (15-37); SGPT 31 U/L (30-65); TC:HDL 4.6 Ratio (Not establshd); TOTAL BILIRUBIN 0.7 mg/dL (<0.1-1.0); TOTAL PROTEIN 7.7 g/dL (6.4-8.2); TRIGLYCERIDE 211 mg/dL (<150); VLDL 42 mg/dL (<40)
--- NOTE | 2020-06-16 13:08 | CARD ---
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 Sergio Vega interventional cardiology Procedures Performed Left heart catheterization left ventriculography selective coronary arteriography and percutaneous coronary intervention with deployment of a drug-eluting stent in the proximal right coronary artery Indication Unstable angina Risk Factors Hypercholesterolemia, Tobacco History () Previous Procedures/Diagnoses Previous PCI, Previous MS Admission/Lab Medications/Medications given during procedure Angiomax bolus and infusion Procedure Narrative The patient was brought electively to the Cardiac Catheterization Laboratory and was prepped and draped in a sterile manner. The right femoral was infiltrated with 2% Lidocaine subcutaneous anesthesia. A 6 German sheath was inserted into the right femoral artery. Coronary angiography was performed using coronary diagnostic catheters. The right coronary system was accessed and visualized with a Diagnostic catheter. The left coronary system was accessed and visualized with a Diagnostic catheter. The left ventricle was accessed and visualized with a Diagnostic catheter. Left ventricular/Aortic Valve gradient assessed via catheter pullback. Left [place] [address] CARDIAC CATH REPORT Name: DANYELLESANTOS D Room: [address] Rudy Fernandez#: [id number] Admission: 06/16/20 Attend Phys: Sergio Vega MD, Discharge: Date of : 58 Report #: [id number] DE [place] projection. Pre-demployment femoral angiogram was performed . Closure device was deployed with a 6 Fr Angioseal. There was no hematoma. Coronary Angiography The patient's coronary anatomy is right dominant. Diagnostic Cath Left Main 0% narrowing LAD 30% proximal LAD narrowing with a widely patent mid LAD stent Circumflex Small nondominant vessel with 0% narrowing Right Coronary Large dominant vessel with 90% proximal stenosis with suggestion of local thrombus at the site; there was a widely patent stent at the acute margin Left Ventriculography The left ventricle is normal in size with normal contractility. The left ventricular ejection fraction is estimated to be 60%. Left ventricular wall motion abnormalities are not present. There is no mitral insufficiency. Hemodynamics The aortic pressure is 130/70 mmHg with a mean of 82 mmHg. The left ventricular end diastolic pressure is 14 mmHg. There was no gradient across the aortic valve upon pullback. PCI Technique Lesion Anticoagulation was achieved with Angiomax. Percutaneous coronary intervention was performed on the proximal right coronary artery. The lesion stenosis prior to intervention was 90% with BRENDAN 3 flow. A 6 German JR4 Guide Catheter was used to engage the Right ostium. A 014 proLinkfluence flex Interventional Guidewire was used to cross the lesion. BALLOON DILATION A Balloon catheter 2.75 x 12 mm trek was inserted and inflated up to 17atm for 15seconds. STENT DEPLOYMENT A drug-eluting stent 3.5 x 23 mm Xience was inserted and inflated up to 17atm for 15seconds. POST STENT DEPLOYMENT BALLOON DILATION A Balloon catheter 3.75 x 12 NC trek was inserted and inflated up to 17atm [place] 10seconds. [place] [address] CARDIAC CATH REPORT Name: SANTOS BASSETT Room: [address] Jim#: [id number] Admission: 06/16/20 Attend Phys: Sergio Vega MD, Discharge: Date of : 58 Report #: [id number] Final angiography reveals 0 % stenosis with BRENDAN 3 flow. Conclusion 1. Significant coronary artery disease characterized by the following: A 30% proximal LAD narrowing with a widely patent mid LAD stent B 90% proximal right coronary stenosis with a widely patent acute marginal stent C small nondominant circumflex coronary artery with 0% narrowing 2. Normal left ventricular systolic function, estimated ejection fraction being 60% 3. Minimal elevation of left ventricular end-diastolic pressure at rest 4. Successful PCI with deployment of a drug-eluting stent at site of 90% proximal right coronary stenosis with 0% residual narrowing and BRENDAN-3 flow to the distal vessel Recommendations Smoking Cessation Cardiac Risk Reduction Program Aggressive Medical Therapy Medications Administered Ticagrelor Diagnostic Cath Approved by: Sergio Vega MD Date/Time: 06/16/2020 13:06:38 <ELECTRONICALLY SIGNED> By: Sergio Vega MD, [facility] 06/16/20 1307 1307 1307Sergio Vega MD, [facility] /INF
--- NOTE | 2020-06-16 13:10 | EKG ---
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1960 Requested By: Sergio Vega Order Number: [id number] Reading MD: Sergio Vega Measurements Intervals [place] Rate: 74 P: 61 PA: 171 QRS: 123 QRSD: 93 T: 23 QT: 370 QTc: 411 Interpretive Statements Sinus rhythm Left posterior fascicular block Borderline low voltage, extremity leads Abnormal R-wave progression, late transition Compared to ECG 01/01/2020 08:26:02 Left posterior fascicular block now present Right-axis deviation persists Electronically Signed On 06-16-2020 13:09:56 CDT by Sergio Vega [email or web address] <ELECTRONICALLY SIGNED> By: Sergio Vega MD, FACC 06/16/20 1309 1026 1026 Sergio Vega MD, FACC /EPI
--- NOTE | 2020-06-16 13:12 | EKG ---
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 : 1960 Requested By: Sergio Vega Order Number: [id number] Reading MD: Sergio Vega Measurements Intervals [place] Rate: 69 P: 66 [place]: 175 QRS: 160 QRSD: 91 T: 46 QT: 399 QTc: 428 Interpretive Statements Sinus rhythm Left posterior fascicular block Borderline low voltage, extremity leads Possible anteroseptal infarct, old Compared to ECG 06/16/2020 10:26:30 R wave progression over the right precordium is delayed Electronically Signed On 06-16-2020 13:12:30 CDT by Sergio Vega [email or web address] <ELECTRONICALLY SIGNED> By: Sergio Vega MD, FACC 06/16/20 1312 1245 1245 Sergio Vega MD, FACC /EPI
[2020-06-17 00:40] VITALS: BP 115/70
[2020-06-17 04:00] VITALS: BP 119/63
[2020-06-17 05:44] LABS: HEMATOCRIT 44.5 % (42.0-52.0); HEMOGLOBIN 15.2 gm/dL (14.0-18.0); MCH 35.5 pg (26.0-34.0); MCHC 34.1 g/dL (28.0-37.0); MPV 8.3 fl. (7.2-11.1); RBC 4.28 mil/uL (4.50-6.00); RDW-CV 16.6 % (10.5-14.5); WBC 5.9 thou/uL (4.0-11.0)
[2020-06-17 06:35] LABS: ALBUMIN 2.9 g/dL (3.4-5.0); ALKALINE PHOSPHATASE 57 U/L (46-116); ANION GAP 8 mmol/L (7-16); BUN 17 mg/dL (7-18); CALCIUM 8.2 mg/dL (8.5-10.1); CHLORIDE 107 mmol/L (98-107); CO2 25 mmol/L (21-32); GLUCOSE 101 mg/dL (70-99); SGOT 16 U/L (15-37); SGPT 22 U/L (30-65); SODIUM 140 mmol/L (136-145); TOTAL BILIRUBIN 0.7 mg/dL (<0.1-1.0); TOTAL PROTEIN 5.7 g/dL (6.4-8.2); TROPONIN-I LEVEL <0.06 ng/mL (<0.06)
[2020-06-17 06:36] LABS: POTASSIUM 3.7 mmol/L (3.5-5.1)
[2020-06-17 08:00] VITALS: BP 145/58
[2020-06-17 11:06] VITALS: BP 145/58
[2020-06-17 11:08] VITALS: BP 145/58
[2020-06-17 11:16] VITALS: BP 145/58
== END 2020-06-17 11:16 | disposition home or self-care (01) ==
LOC: M.CL 09:05 → M.TBA-CV 11:56 → M.2W 12:15
PROVIDERS: ADMIT Internal Medicine; ATTEND Internal Medicine
DX: I25.110 Atherosclerotic heart disease of native coronary artery with unstable angina pectoris (principal); I25.2 Old myocardial infarction; E78.00 Pure hypercholesterolemia, unspecified; F17.200 Nicotine dependence, unspecified, uncomplicated; Z79.82 Long term (current) use of aspirin; Z79.899 Other long term (current) drug therapy; Z20.828 Contact with and (suspected) exposure to other viral communicable diseases; Z86.73 Personal history of transient ischemic attack (TIA), and cerebral infarction without residual deficits

== ENCOUNTER 2021-07-17 13:24 | Emergency (ER) | payer MEDICARE ==
[~2021-07-17] VITALS: Ht 185.4 cm; Wt 95.3 kg
[~2021-07-17 13:24] MED LIST changes: +IMDUR 30 MG TAB30 M1 PO; +NITROSTAT0.4 M1 SUBLING
[2021-07-17 15:55] LABS: HEMOGLOBIN 16.9 gm/dL (14.0-18.0); MCH 40.4 pg (26.0-34.0); MCHC 34.4 g/dL (28.0-37.0); MCV 117.4 fL (80.0-100.0); MPV 8.5 fl. (7.2-11.1); NUCLEATED RBCS 0 /100WBC; PLATELET COUNT* 219 thou/uL (150-400); RBC 4.18 mil/uL (4.50-6.00); RDW-CV 15.6 % (10.5-14.5)
[2021-07-17 16:02] LABS: CALCIUM 9.1 mg/dL (8.5-10.1)
[2021-07-17 16:06] LABS: ALBUMIN 4.1 g/dL (3.4-5.0); TOTAL BILIRUBIN 0.4 mg/dL (<0.1-1.0); TOTAL PROTEIN 7.5 g/dL (6.4-8.2)
[2021-07-17 16:08] LABS: URINE BLOOD 3+ (Negative); URINE CLARITY CLEAR; URINE COLOR YELLOW; URINE GLUCOSE-RANDOM NEGATIVE (Negative); URINE LEUKOCYTES-REFLEX NEGATIVE (Negative); URINE NITRITE-REFLEX NEGATIVE (Negative); URINE PROTEIN TRACE (Negative); URINE SPECIFIC GRAVITY >= 1.030 (1.005-1.030); URINE UROBILINOGEN 0.2 E.U./dl (0.2-1.0)
[2021-07-17 16:11] LABS: ICTOTEST (BILI CONFIRMATORY) Negative (Negative); URINE BILIRUBIN 2+ (Negative); URINE KETONES 3+ (Negative)
[2021-07-17 16:22] LABS: CASTS None Seen /LPF (None Seen); CRYSTALS None Seen /LPF (None Seen); MUCUS 0-3 Light strn/LPF (None Seen); SQUAMOUS 0-3 Few /LPF (0-3)
[2021-07-17 16:23] LABS: BACTERIA-REFLEX None Seen /HPF (None Seen); URINE RBC >20 Many /HPF (0-2); URINE WBC-REFLEX 0-5 Rare /HPF (0-5)
[2021-07-17 16:26] LABS: ABSOLUTE LYMPHOCYTES 0.6 thou/uL (0.8-5.3); ABSOLUTE MONOCYTES 0.4 thou/uL (0.0-1.2)
[2021-07-17 16:27] LABS: PLATELET ESTIMATE ADEQUATE
[2021-07-17 16:28] LABS: ANISOCYTOSIS Occasional; MACROCYTES 2+
[2021-07-17] MEDS ORDERED: HYDROCODON-ACE1 EAC7 PO (17:02)
[2021-07-17] MEDS ORDERED: FLOMAX0.4 MG PO (17:07)
[2021-07-17] MEDS ORDERED: ZOFRAN ODT4 MG PO (17:07)
[2021-07-17] MEDS ORDERED: NITROSTAT0.4 M1 SUBLING (17:09)
[2021-07-17 17:40] VITALS: BP 133/79
== END 2021-07-17 17:41 | disposition home or self-care (01) ==
LOC: M.ERS 13:24
PROVIDERS: Nurse Practitioner Family
DX: S32.011A Stable burst fracture of first lumbar vertebra, initial encounter for closed fracture (principal); N21.1 Calculus in urethra; Z79.82 Long term (current) use of aspirin; Z79.899 Other long term (current) drug therapy; W19.XXXA Unspecified fall, initial encounter; Y93.89 Activity, other specified; Y92.89 Other specified places as the place of occurrence of the external cause; Y99.8 Other external cause status